=== PATIENT | male | born 1950 | race Caucasian/White ===

== ENCOUNTER 2022-12-27 12:08 | Outpatient (CLI) | payer MEDICARE, OTHER ==
[~2022-12-27 12:08] MED LIST: Iopamidol 370 76% 100 ML VIAL ONE
== END 2022-12-27 12:09 | disposition home or self-care (01) ==
LOC: CT 12:08
PROVIDERS: ATTEND Oral & Maxillofacial Surgery
DX: R20.2 Paresthesia of skin (principal)
CPT/HCPCS: 70488; 82565; Q9967

== ENCOUNTER 2022-12-31 08:25 | Inpatient (IN) | payer MEDICARE, OTHER ==
[2022-12-31 11:21] LABS: #Eosinphils 0.2 thou/uL (0.0-0.7); #Monocytes 0.9 thou/uL (0.11-0.59); #Neutrophils 6.3 thou/uL (1.40-6.50); %Basophils 0.3 % (0.0-1.0); %Eosinophils 1.6 % (0.0-10.0); %Lymphocytes 21.8 % (21.0-51.0); %Monocytes 9.5 % (0.0-10.0); %Neutrophils 66.3 % (42.0-75.0); Hematocrit 35.9 % (42.0-52.0); Hemoglobin 11.6 g/dL (14.0-18.0); Mean Corpuscular HGB CONC 32.3 g/dL (32.0-36.0); Mean Corpuscular Hemoglobin 30.9 pg (27.0-31.0); Mean Corpuscular Volume 95.5 fl (78.0-98.0); Mean Platelet Volume 9.1 fL (7.4-10.4); Platelet Count 400 10x3/uL (130-400); RBC Distribution Width 12.9 % (11.5-14.5); Red Blood Cell (RBC) Count 3.76 mill/uL (4.70-6.10); White Blood Cell (WBC) Count 9.5 10x3/uL (4.8-10.8)
[2022-12-31 11:47] LABS: ALT (SGPT) 24 U/L (8-55); AST (SGOT) 26 U/L (5-34); Albumin 4.4 g/dL (3.4-4.8); Alkaline Phosphatase 69 U/L (40-110); Anion Gap 15 mmol/L (10-20); BUN (Urea Nitrogen) 17 mg/dL (8.4-25.7); Bilirubin, Total 0.4 mg/dL (0.2-1.2); Calc. Creatinine Clearance 0 mL/min (70-130); Carbon Dioxide 26 mmol/L (23-31); Chloride 101 mmol/L (98-107); Estimated GFR 60; Globulin 2.7 g/dL (2.4-3.5); Glucose 114 mg/dL (83-110); Potassium 4.5 mmol/L (3.5-5.1); Protein, Total 7.1 g/dL (5.8-8.1); Sodium 137 mmol/L (136-145)
[2022-12-31] MEDS ORDERED: Ampicillin/Sulbactam 1.5 GM VIAL ONE (13:21)
[2022-12-31] MEDS ORDERED: Sodium Chloride 0.9% 100 ML ONE (13:21)
[2022-12-31 14:15] LABS: Bacteria/HPF None Seen HPF (None Seen); Bilirubin Negative (Negative); Blood, Urine Negative (Negative); CAUTI Indications for Culture Fever or rigors; Clarity Clear (Clear); Glucose, Urine (Dipstick) 30 mg/dL (Negative); Ketone, Urine Negative (Negative); Leukocyte Negative Leu/uL (Negative); Nitrite Negative (Negative); Protein, Urine (Dipstick) Negative (Neg-Trace); RBC/HPF 0-3 HPF (0-3); Squamous Epithelial None Seen HPF (0-3); Urobilinogen Normal mg/dL (Less than 2); WBC/HPF 0-3 HPF (0-3); pH, Urine 5.5 (5.0-9.0)
[2022-12-31 14:16] LABS: Urine Culture Reflex No No
[2022-12-31] MEDS ORDERED: Calcium Carbonate 500 MG ChewTAB PO PRN (15:00)
[2022-12-31] MEDS ORDERED: Ondansetron ODT 4 MG TAB PO PRN (15:00)
[2022-12-31] MEDS ORDERED: Ondansetron PF 4 MG/2 ML Vial IVP PRN (15:00)
[2022-12-31] MEDS ORDERED: HYDROcodone/Acetaminophen 5/325 mg Tablet PO PRN (15:02)
[2022-12-31] MEDS ORDERED: Senokot 8.6 MG TAB PO PRN (15:49)
[2022-12-31 16:49] VITALS: BMI 28.5
[2022-12-31] MEDS: Acetaminophen 325 MG TAB PO PRN ×2 (17:39→23:47)
[2022-12-31] MEDS: Ibuprofen 200 MG TAB PO PRN ×2 (17:39→23:48)
[2022-12-31] MEDS ORDERED: Ampicillin/Sulbactam 3 GM in Sodium Chloride 0.9% 100 ML IVPB SCH (20:00)
[2022-12-31] MEDS: Gabapentin 300 MG CAP PO SCH (20:29)
[2022-12-31] MEDS: Saccharomyces boulardii 250 MG CAP PO SCH (20:29)
[2022-12-31] MEDS: Famotidine 20 MG TAB PO SCH (20:30)
[2022-12-31] MEDS: Atorvastatin Calcium 20 MG TAB PO SCH (20:45)
[2023-01-01] MEDS: Ertapenem 1 GM in Sodium Chloride 0.9% 100 ML IVPB SCH (10:06)
[2023-01-01] MEDS: Famotidine 20 MG TAB PO SCH ×2 (10:06→20:13)
[2023-01-01] MEDS ORDERED: Iopamidol-370 76% 500 ML MDV (1 ML CHARGE) ONE (10:55)
[2023-01-01] MEDS: Atorvastatin Calcium 20 MG TAB PO SCH (11:39)
[2023-01-01] MEDS: Ibuprofen 200 MG TAB PO PRN ×2 (11:40→23:32)
[2023-01-01] MEDS: Acetaminophen 325 MG TAB PO PRN ×2 (11:40→23:30)
[2023-01-01] MEDS: Gabapentin 300 MG CAP PO SCH ×2 (12:10→20:13)
[2023-01-01] MEDS: Saccharomyces boulardii 250 MG CAP PO SCH (20:13)
[2023-01-02 06:04] LABS: #Eosinphils 0.3 thou/uL (0.0-0.7); #Monocytes 0.7 thou/uL (0.11-0.59); #Neutrophils 4.7 thou/uL (1.40-6.50); %Basophils 0.4 % (0.0-1.0); %Eosinophils 3.4 % (0.0-10.0); %Lymphocytes 25.7 % (21.0-51.0); %Monocytes 9.4 % (0.0-10.0); %Neutrophils 60.6 % (42.0-75.0); Hematocrit 31.4 % (42.0-52.0); Hemoglobin 10.2 g/dL (14.0-18.0); Mean Corpuscular HGB CONC 32.5 g/dL (32.0-36.0); Mean Corpuscular Hemoglobin 30.7 pg (27.0-31.0); Mean Corpuscular Volume 94.6 fl (78.0-98.0); Platelet Count 337 10x3/uL (130-400); RBC Distribution Width 12.7 % (11.5-14.5); Red Blood Cell (RBC) Count 3.32 mill/uL (4.70-6.10); White Blood Cell (WBC) Count 7.7 10x3/uL (4.8-10.8)
[2023-01-02 06:32] LABS: ALT (SGPT) 18 U/L (8-55); AST (SGOT) 21 U/L (5-34); Albumin 3.8 g/dL (3.4-4.8); Alkaline Phosphatase 60 U/L (40-110); Anion Gap 13 mmol/L (10-20); BUN (Urea Nitrogen) 15 mg/dL (8.4-25.7); Bilirubin, Total 0.4 mg/dL (0.2-1.2); Calc. Creatinine Clearance 79 mL/min (70-130); Calcium 9.2 mg/dL (7.8-10.44); Carbon Dioxide 25 mmol/L (23-31); Chloride 104 mmol/L (98-107); Estimated GFR 68; Globulin 2.3 g/dL (2.4-3.5); Glucose 133 mg/dL (83-110); Potassium 4.1 mmol/L (3.5-5.1); Protein, Total 6.1 g/dL (5.8-8.1); Sodium 138 mmol/L (136-145)
[2023-01-02] MEDS: Ibuprofen 200 MG TAB PO PRN ×3 (06:38→21:25)
[2023-01-02] MEDS: Acetaminophen 325 MG TAB PO PRN ×3 (06:42→21:23)
[2023-01-02] MEDS: Ertapenem 1 GM in Sodium Chloride 0.9% 100 ML IVPB SCH (10:40)
[2023-01-02] MEDS: Famotidine 20 MG TAB PO SCH ×2 (10:49→21:22)
[2023-01-02] MEDS: Atorvastatin Calcium 20 MG TAB PO SCH (10:49)
[2023-01-02] MEDS: Gabapentin 300 MG CAP PO SCH ×2 (10:50→21:24)
[2023-01-02] MEDS: Saccharomyces boulardii 250 MG CAP PO SCH (21:25)
[2023-01-02] MEDS ORDERED: Melatonin 3 MG TAB PO PRN (22:09)
[2023-01-03] MEDS ORDERED: Milk Of Magnesia 30 ML UDCUP PO PRN (08:59)
[2023-01-03] MEDS: Famotidine 20 MG TAB PO SCH ×2 (09:15→20:28)
[2023-01-03] MEDS: Ibuprofen 200 MG TAB PO PRN ×2 (09:15→20:31)
[2023-01-03] MEDS: Acetaminophen 325 MG TAB PO PRN ×2 (09:15→20:29)
[2023-01-03] MEDS: Gabapentin 300 MG CAP PO SCH ×2 (09:16→20:28)
[2023-01-03] MEDS: Atorvastatin Calcium 20 MG TAB PO SCH (09:16)
[2023-01-03 13:20] LABS: Prothrombin Time 13.6 sec (12.0-14.7)
[2023-01-03] MEDS ORDERED: FLU VACC QS2023(65UP)/MF59C/PF 60 MCG/0.5 ML SYRINGE IM ONE (17:30)
[2023-01-03] MEDS: Saccharomyces boulardii 250 MG CAP PO SCH (20:31)
[2023-01-03] MEDS ORDERED: Meropenem 1 GM in Sodium Chloride 0.9% 100 ML IVPB SCH (22:00)
[2023-01-04] MEDS: Meropenem 1 GM in Sodium Chloride 0.9% 100 ML IVPB SCH ×3 (07:30→23:00)
[2023-01-04] MEDS: Acetaminophen 325 MG TAB PO PRN ×2 (09:12→20:17)
[2023-01-04] MEDS: Gabapentin 300 MG CAP PO SCH ×2 (09:13→20:19)
[2023-01-04] MEDS: Famotidine 20 MG TAB PO SCH ×2 (09:14→20:19)
[2023-01-04] MEDS: Atorvastatin Calcium 20 MG TAB PO SCH (09:14)
[2023-01-04] MEDS: Ibuprofen 200 MG TAB PO PRN ×2 (09:14→20:20)
[2023-01-04] MEDS ORDERED: fentaNYL 50 mcg/mL 1 mL Vial ONE (10:46)
[2023-01-04] MEDS ORDERED: Sodium Bicarbonate 2.5 MEQ/5 ML VIAL ONE (10:46)
[2023-01-04] MEDS: Saccharomyces boulardii 250 MG CAP PO SCH (20:19)
[2023-01-05] MEDS: Meropenem 1 GM in Sodium Chloride 0.9% 100 ML IVPB SCH ×2 (05:57→13:19)
[2023-01-05] MEDS: Atorvastatin Calcium 20 MG TAB PO SCH (08:17)
[2023-01-05] MEDS: Gabapentin 300 MG CAP PO SCH (08:17)
[2023-01-05] MEDS: Famotidine 20 MG TAB PO SCH (08:18)
[2023-01-05 12:16] VITALS: TEMP 98.4
[2023-01-05] MEDS: Acetaminophen 325 MG TAB PO PRN (13:27)
[2023-01-05] MEDS: Ibuprofen 200 MG TAB PO PRN (13:37)
[2023-01-05 15:49] VITALS: BP 138/68
== END 2023-01-05 17:44 | disposition home or self-care (01) | DRG 158 ==
LOC: ERS 08:25 → SURG A 14:09 → MSONC 01-03 08:08
PROVIDERS: ADMIT Internal Medicine; ATTEND Family Medicine
PROC: 02HV33Z Insertion of Infusion Device into Superior Vena Cava, Percutaneous Approach (ICD-10-PCS; 2022-12-31)
PROC: B5181ZA Fluoroscopy of Superior Vena Cava using Low Osmolar Contrast, Guidance (ICD-10-PCS; 2022-12-31)
PROC: B548ZZA Ultrasonography of Superior Vena Cava, Guidance (ICD-10-PCS; 2022-12-31)
PROC: 3E04329 Introduction of Other Anti-infective into Central Vein, Percutaneous Approach (ICD-10-PCS; 2022-12-31)
PROC: 079P3ZX Drainage of Spleen, Percutaneous Approach, Diagnostic (ICD-10-PCS; principal; 2023-01-04)
DX: M27.2 Inflammatory conditions of jaws (principal); C83.37 Diffuse large B-cell lymphoma, spleen; M87.88 Other osteonecrosis, other site; D73.89 Other diseases of spleen; R50.9 Fever, unspecified; E78.5 Hyperlipidemia, unspecified; H66.91 Otitis media, unspecified, right ear; D63.1 Anemia in chronic kidney disease; N18.2 Chronic kidney disease, stage 2 (mild); J32.9 Chronic sinusitis, unspecified; K82.8 Other specified diseases of gallbladder; R59.0 Localized enlarged lymph nodes; H74.91 Unspecified disorder of right middle ear and mastoid; F10.90 Alcohol use, unspecified, uncomplicated; Z98.890 Other specified postprocedural states; Z79.899 Other long term (current) drug therapy
CPT/HCPCS: 36415; 36569; 49180; 71260; 74177; 77012; 80053; 81001; 82105; 82378; 83615; 84550; 85025; 85610; 86140; 86301; 87040; 87070; 87205; 87449; 88184; 88185; 88305; 88333; 88334; 88341; 88342; 88360; 88365; 96365; C1751; J0295; J1335; J1642; J2185; J3010; J3490; Q9967

== ENCOUNTER 2023-01-13 08:00 | Outpatient (CLI) | payer MEDICARE, OTHER | END 2023-01-13 08:01 | LOC: PET 08:00 | PROVIDERS: ATTEND Internal Medicine Hematology & Oncology | DX: C83.39 Diffuse large B-cell lymphoma, extranodal and solid organ sites (principal) | CPT/HCPCS: 78815; A9552 ==

== ENCOUNTER → 2023-01-19 | Day surgery (SDC) | payer MEDICARE, OTHER ==
[~2023-01-19] MED LIST changes: +FLU VACC QS2023(65UP)/MF59C/PF 60 MCG/0.5 ML SYRINGE IM ONE; -Iopamidol 370 76% 100 ML VIAL ONE; +Methotrexate Sodium/PF 12 MG in Sodium Chloride 0.9% 9.52 ML IT SCH
[2023-01-19 13:46] LABS: CSF Source CSF; CSF, Glucose 79 mg/dl (40-70); CSF, Protein 45 mg/dL (15-40); Tube # 4
[2023-01-19 13:47] LABS: Clarity Clear (Clear)
[2023-01-19 18:49] LABS: Color Of CSF Supernatant COLORLESS (Colorless); Tube # 1; Unspun CSF Color COLORLESS (Colorless)
== END ==
LOC: CT 07:22
PROVIDERS: ATTEND Internal Medicine Hematology & Oncology
PROC: 009U3ZX Drainage of Spinal Canal, Percutaneous Approach, Diagnostic (ICD-10-PCS; principal; 2023-01-19)
DX: C83.39 Diffuse large B-cell lymphoma, extranodal and solid organ sites (principal); M51.36 Other intervertebral disc degeneration, lumbar region
CPT/HCPCS: 62270; 82945; 84157; 88112; 88184; 89051; J9250

== ENCOUNTER 2024-04-03 16:08 | Emergency (ER) | payer MEDICARE, OTHER ==
[2024-04-03] MEDS ORDERED: predniSONE 20 MG TAB ONE (18:36)
[2024-04-03] MEDS ORDERED: diphenhydrAMINE 25 MG CAP ONE (18:36)
== END 2024-04-03 18:50 | disposition home or self-care (01) ==
LOC: ERS 16:08
DX: L50.0 Allergic urticaria (principal)
CPT/HCPCS: 99282; J7512